=== PATIENT | male | born 1935 | race Two or more races ===

== ENCOUNTER 2018-11-16 12:15 | Inpatient (IN) | payer MEDICARE, OTHER ==
[2018-11-16] MEDS: NA BICARBONATE 8.4% 50 ML SYG IV (14:02)
[2018-11-16] MEDS: NORepinephrine 8MG/250 ML (PMX 250 ML IV (14:07)
[2018-11-16] MEDS ORDERED: ACETAMINOPHEN 325 MG TAB PO (14:30)
[2018-11-16] MEDS ORDERED: SODIUM BICARBONATE (IV ADD) 150 MEQ in DEXTROSE 5% 1,000 ML IV (15:00)
[2018-11-16] MEDS ORDERED: VANCOMYCIN IV PER PHARMACY XX (15:00)
[2018-11-16] MEDS ORDERED: GLUCOSE GEL 15 GRAM TUBE BUCCAL (15:00)
[2018-11-16] MEDS ORDERED: GLUCAGON 1 MG INJ IM (15:00)
[2018-11-16] MEDS ORDERED: GLUCOSE GEL 15 GRAM TUBE PO ×2 (15:00)
[2018-11-16] MEDS ORDERED: DEXTROSE 50% 50 ML SYRINGE IV ×4 (15:00)
[2018-11-16] MEDS ORDERED: SODIUM BICARBONATE IN D5W 1,000 ML IV (15:00)
[2018-11-16] MEDS ORDERED: SODIUM BICARBONATE (IV ADD) 100 MEQ in DEXTROSE 5% 1,000 ML IV (17:00)
[2018-11-16] MEDS ORDERED: MIDAZOLAM 1 MG/ML 2 ML INJ ×2 (17:11)
[2018-11-16] MEDS: MIDAZOLAM 1 MG/ML 2 ML INJ IV (17:53)
[2018-11-16] MEDS ORDERED: SODIUM BICARBONATE (IV ADD) 100 MEQ in DEXTROSE 5%-0.45% NACL 1,000 ML IV ×2 (19:00→21:22)
[2018-11-16] MEDS: DIVALPROEX SPRINKLE 125 MG CAP PO (21:00)
[2018-11-16] MEDS: INSULIN ASPART [NOVOLOG] 3 ML PEN SC (21:00)
[2018-11-16] MEDS: BETHANECHOL 25 MG TAB PO (21:00)
[2018-11-16] MEDS: ERGOCALCIFEROL 50,000 UNIT CAP PO (21:04)
[2018-11-16] MEDS: MEROPENEM 500MG/50 ML (PMX) 50 ML IVPB (21:12)
[2018-11-16] MEDS: VANCOMYCIN 1.5 GM/NS 250 ML 250 ML IVPB (21:13)
[2018-11-16] MEDS: SODIUM BICARBONATE (IV ADD) 100 MEQ in DEXTROSE 5%-0.45% NACL 1,000 ML IV (22:12)
[2018-11-16] MEDS: LORAZEPAM 2 MG INJ IV (23:09)
[2018-11-17] MEDS: MEROPENEM 500MG/50 ML (PMX) 50 ML IVPB ×3 (00:36→20:24)
[2018-11-17] MEDS: NORepinephrine 8MG/250 ML (PMX 250 ML IV ×2 (03:11→14:48)
[2018-11-17] MEDS: LEVOTHYROXINE 100 MCG VIAL IV (05:10)
[2018-11-17] MEDS: LORAZEPAM 2 MG INJ IV ×3 (05:38→23:31)
[2018-11-17] MEDS: INSULIN ASPART [NOVOLOG] 3 ML PEN SC ×4 (07:45→23:34)
[2018-11-17] MEDS: SODIUM BICARBONATE (IV ADD) 100 MEQ in DEXTROSE 5%-0.45% NACL 1,000 ML IV ×3 (08:17→20:26)
[2018-11-17] MEDS: ASPIRIN 325 MG TAB PO (09:00)
[2018-11-17] MEDS: BETHANECHOL 25 MG TAB PO ×3 (09:00→20:26)
[2018-11-17] MEDS: DIVALPROEX SPRINKLE 125 MG CAP PO ×3 (09:00→20:26)
[2018-11-17] MEDS: NA BICARBONATE 8.4% 50 ML SYG IV (09:57)
[2018-11-17] MEDS ORDERED: VANCOMYCIN 750 MG (PMX) 250 ML IVPB (18:00)
[2018-11-17] MEDS: morphine 2 MG INJ IV (21:35)
[2018-11-18] MEDS: morphine 2 MG INJ IV ×4 (03:03→19:49)
[2018-11-18] MEDS: INSULIN ASPART [NOVOLOG] 3 ML PEN SC ×4 (06:00→23:31)
[2018-11-18] MEDS: SODIUM BICARBONATE (IV ADD) 100 MEQ in DEXTROSE 5%-0.45% NACL 1,000 ML IV ×2 (06:24→16:25)
[2018-11-18] MEDS: LEVOTHYROXINE 100 MCG VIAL IV (06:24)
[2018-11-18] MEDS: VANCOMYCIN 750 MG (PMX) 250 ML IVPB (06:24)
[2018-11-18] MEDS ORDERED: NORepinephrine 8MG/250 ML (PMX 250 ML IV (08:30)
[2018-11-18] MEDS: MEROPENEM 500MG/50 ML (PMX) 50 ML IVPB (08:57)
[2018-11-18] MEDS: POTASSIUM CHLORIDE 50 ML IVPB (08:58)
[2018-11-18] MEDS: ASPIRIN 325 MG TAB PO (08:59)
[2018-11-18] MEDS: DIVALPROEX SPRINKLE 125 MG CAP PO ×3 (08:59→20:03)
[2018-11-18] MEDS: BETHANECHOL 25 MG TAB PO ×3 (08:59→20:03)
[2018-11-18] MEDS: FLUCONAZOLE 200 MG (PMX) 100 ML IVPB (15:17)
[2018-11-18] MEDS: CEFEPIME 1GM/50 ML (PMX) 50 ML IVPB (20:03)
[2018-11-19] MEDS: SODIUM BICARBONATE (IV ADD) 100 MEQ in DEXTROSE 5%-0.45% NACL 1,000 ML IV (02:41)
[2018-11-19] MEDS: LEVOTHYROXINE 100 MCG VIAL IV (05:44)
[2018-11-19] MEDS: INSULIN ASPART [NOVOLOG] 3 ML PEN SC ×4 (05:44→23:47)
[2018-11-19] MEDS: DEXTROSE 5% 1,000 ML IV (06:48)
[2018-11-19] MEDS: POTASSIUM CHLORIDE 100 ML IVPB ×2 (06:48→11:32)
[2018-11-19] MEDS: ASPIRIN 325 MG TAB PO (09:00)
[2018-11-19] MEDS: BETHANECHOL 25 MG TAB PO ×3 (09:00→20:36)
[2018-11-19] MEDS: DIVALPROEX SPRINKLE 125 MG CAP PO ×3 (09:00→20:36)
[2018-11-19] MEDS: ALBUMIN HUMAN 25% 100 ML IV ×2 (10:13→12:46)
[2018-11-19] MEDS: morphine 2 MG INJ IV ×2 (11:32→18:43)
[2018-11-19] MEDS: FLUCONAZOLE 200 MG (PMX) 100 ML IVPB (16:27)
[2018-11-19] MEDS: CEFEPIME 1GM/50 ML (PMX) 50 ML IVPB (20:36)
[2018-11-20] MEDS: DEXTROSE 5% 1,000 ML IV ×2 (02:04→20:24)
[2018-11-20] MEDS: LEVOTHYROXINE 100 MCG VIAL IV (05:19)
[2018-11-20] MEDS: INSULIN ASPART [NOVOLOG] 3 ML PEN SC ×3 (05:20→17:59)
[2018-11-20] MEDS: ASPIRIN 325 MG TAB PO (08:40)
[2018-11-20] MEDS: DIVALPROEX SPRINKLE 125 MG CAP PO ×3 (08:40→20:18)
[2018-11-20] MEDS: BETHANECHOL 25 MG TAB PO ×3 (08:40→20:18)
[2018-11-20] MEDS: FUROSEMIDE 40 MG INJ IV (08:41)
[2018-11-20] MEDS: morphine 2 MG INJ IV (13:39)
[2018-11-20] MEDS: FLUCONAZOLE 200 MG (PMX) 100 ML IVPB (16:17)
[2018-11-20] MEDS: LORAZEPAM 2 MG INJ IV (18:04)
[2018-11-20] MEDS: CEFEPIME 1GM/50 ML (PMX) 50 ML IVPB (20:24)
[2018-11-20] MEDS: BALSAM PERU/CASTOR OIL 60 GM TUBE TOP (21:06)
[2018-11-21] MEDS: LORAZEPAM 2 MG INJ IV (01:54)
[2018-11-21] MEDS: LEVOTHYROXINE 100 MCG VIAL IV (05:13)
[2018-11-21] MEDS: INSULIN ASPART [NOVOLOG] 3 ML PEN SC ×3 (05:18→12:00)
[2018-11-21] MEDS: BALSAM PERU/CASTOR OIL 60 GM TUBE TOP (08:58)
[2018-11-21] MEDS: POTASSIUM CHLORIDE 100 ML IVPB ×2 (08:58→09:00)
[2018-11-21] MEDS: FUROSEMIDE 20 MG INJ IV (08:59)
[2018-11-21] MEDS: ASPIRIN 325 MG TAB PO (09:00)
[2018-11-21] MEDS: DIVALPROEX SPRINKLE 125 MG CAP PO ×2 (09:00→13:00)
[2018-11-21] MEDS: ERGOCALCIFEROL 50,000 UNIT CAP PO (09:00)
[2018-11-21] MEDS: BETHANECHOL 25 MG TAB PO ×2 (09:00→13:00)
[2018-11-21] MEDS ORDERED: DIMETHICONE STICK TOP (14:00)
[2018-11-21] MEDS ORDERED: PENDING SANTYL ORDER FOR WOUND CARE XX (14:00)
[2018-11-21] MEDS ORDERED: ARTIFICIAL TEARS 15 ML OPH BOTH EYES (14:00)
[2018-11-21] MEDS: morphine 2 MG INJ IV (15:25)
[2018-11-22] MEDS: LORAZEPAM 2 MG INJ IV (02:11)
[2018-11-22] MEDS: BALSAM PERU/CASTOR OIL 60 GM TUBE TOP (09:51)
[2018-11-22] MEDS: morphine 2 MG INJ IV (18:15)
[2018-11-23] MEDS: BALSAM PERU/CASTOR OIL 60 GM TUBE TOP (09:46)
[2018-11-24] MEDS: BALSAM PERU/CASTOR OIL 60 GM TUBE TOP (08:43)
[2018-11-24] MEDS: DEXTROSE 5% 1,000 ML IV (17:48)
[2018-11-24] MEDS ORDERED: DEXTROSE 50% 50 ML SYRINGE (18:26)
[2018-11-24] MEDS: DEXTROSE 50% 50 ML SYRINGE IV (18:48)
[2018-11-25] MEDS: DEXTROSE 10% 1,000 ML IV ×2 (00:52→16:06)
[2018-11-25] MEDS: LORAZEPAM 2 MG INJ IV (00:53)
[2018-11-25] MEDS: BALSAM PERU/CASTOR OIL 60 GM TUBE TOP (10:14)
[2018-11-26] MEDS: morphine 2 MG INJ IV (04:13)
[2018-11-26] MEDS: DEXTROSE 10% 1,000 ML IV ×3 (04:27→22:01)
[2018-11-26] MEDS: BALSAM PERU/CASTOR OIL 60 GM TUBE TOP (09:56)
[2018-11-26] MEDS: POTASSIUM PHOSPHATE 20 MEQ in SOD CHLORIDE 0.9% 250 ML IVPB (09:56)
[2018-11-27] MEDS: BALSAM PERU/CASTOR OIL 60 GM TUBE TOP (08:08)
[2018-11-27] MEDS: DEXTROSE 10% 1,000 ML IV (12:10)
[2018-11-27] MEDS: LORAZEPAM 2 MG INJ IV (14:53)
[2018-11-28] MEDS: DEXTROSE 10% 1,000 ML IV (01:37)
[2018-11-28] MEDS: LORAZEPAM 2 MG INJ IV ×2 (01:44→09:37)
[2018-11-28] MEDS: morphine 2 MG INJ IV ×2 (06:00→17:40)
[2018-11-28] MEDS: MAGNESIUM SULFATE 2 GM/50 ML 50 ML IVPB (09:37)
[2018-11-28] MEDS: BALSAM PERU/CASTOR OIL 60 GM TUBE TOP (09:37)
== END 2018-11-28 18:12 | DRG 871 ==
LOC: ICU 12:15 → PP2 11-21 19:15
PROC: 5A09557 Assistance with Respiratory Ventilation, Greater than 96 Consecutive Hours, Continuous Positive Airway Pressure (ICD-10-PCS; principal; 2018-11-16)
PROC: 4A133R1 Monitoring of Arterial Saturation, Peripheral, Percutaneous Approach (ICD-10-PCS; 2018-11-16)
PROC: 06HM33Z Insertion of Infusion Device into Right Femoral Vein, Percutaneous Approach (ICD-10-PCS; 2018-11-16)
PROC: B54BZZA Ultrasonography of Right Lower Extremity Veins, Guidance (ICD-10-PCS; 2018-11-16)
DX: A41.9 Sepsis, unspecified organism (principal); R65.21 Severe sepsis with septic shock; J18.9 Pneumonia, unspecified organism; N17.0 Acute kidney failure with tubular necrosis; I50.43 Acute on chronic combined systolic (congestive) and diastolic (congestive) heart failure; J96.02 Acute respiratory failure with hypercapnia; J96.01 Acute respiratory failure with hypoxia; G92 Toxic encephalopathy; I13.0 Hypertensive heart and chronic kidney disease with heart failure and stage 1 through stage 4 chronic kidney disease, or unspecified chronic kidney disease; E87.1 Hypo-osmolality and hyponatremia; D61.818 Other pancytopenia; C34.90 Malignant neoplasm of unspecified part of unspecified bronchus or lung; J91.0 Malignant pleural effusion; C78.2 Secondary malignant neoplasm of pleura; E87.4 Mixed disorder of acid-base balance; I42.9 Cardiomyopathy, unspecified; B37.49 Other urogenital candidiasis; I47.1 Supraventricular tachycardia; E87.0 Hyperosmolality and hypernatremia; E87.6 Hypokalemia; Z66 Do not resuscitate; I25.2 Old myocardial infarction; E78.5 Hyperlipidemia, unspecified; I25.10 Atherosclerotic heart disease of native coronary artery without angina pectoris; E66.9 Obesity, unspecified; F03.90 Unspecified dementia, unspecified severity, without behavioral disturbance, psychotic disturbance, mood disturbance, and anxiety; E11.65 Type 2 diabetes mellitus with hyperglycemia; K21.9 Gastro-esophageal reflux disease without esophagitis; N18.9 Chronic kidney disease, unspecified; E11.22 Type 2 diabetes mellitus with diabetic chronic kidney disease; D47.2 Monoclonal gammopathy; E03.9 Hypothyroidism, unspecified; I80.8 Phlebitis and thrombophlebitis of other sites; G40.909 Epilepsy, unspecified, not intractable, without status epilepticus; D63.8 Anemia in other chronic diseases classified elsewhere
CPT/HCPCS: 36600; 71045; 80048; 80053; 81001; 82533; 82803; 82962; 83036; 83605; 83735; 84100; 84145; 85025; 85610; 87040-91; 87081; 87086; 92610; 93005; 93306; 94660